=== PATIENT | female | born 1935 | race Two or more races ===

== ENCOUNTER 2018-06-12 07:33 | Day surgery (SDC) | payer BC ==
[~2018-06-12] VITALS: Ht 143.5 cm; Wt 57.1 kg
[2018-06-12] VITALS (8 sets, daily range): BP systolic 125–162; BP diastolic 69–74; PULSE 54–59; RESP 13–34; Ht 143.5 cm; Wt 57.1 kg
[~2018-06-12 07:33] MED LIST: ACETAMINOPHEN 325 MG TAB (POST-OP) PO PRN; CIPROFLOXACIN 0.3% 2.5 ML OPH (PRE-OP) OPER SCH; DICLOFENAC 0.1% 2.5 ML OPH (PRE-OP) OPER SCH; GENTAMICIN 0.3% 5 ML OPH (PRE-OP) OPER SCH; PHENYLephrine 2.5% 15 ML OPH (PRE-OP) OPER SCH; TETRACAINE 0.5% 4 ML OPH (PRE-OP) OPER SCH; TROPICAMIDE 1% 15 ML OPH (PRE OP) OPER SCH
[2018-06-12] MEDS ORDERED: CYCLOPENTOLATE 1% 2 ML OPH ONE (08:34)
[2018-06-12] MEDS ORDERED: MOXIFLOXACIN 0.5% 3 ML OPH ONE (08:54)
[2018-06-12] MEDS ORDERED: LIDOCAINE 4% (MPF) 5 ML INJ ONE (08:54)
[2018-06-12] MEDS ORDERED: CARBACHOL 0.01% 1.5 ML OPH INJ ONE (08:55)
[2018-06-12] MEDS ORDERED: TOBRAMYCIN 0.3% 3.5 GM OPH OINT ONE (08:55)
[2018-06-12] MEDS ORDERED: TETRACAINE 0.5% 4 ML OPH ONE (08:56)
[2018-06-12] MEDS ORDERED: CYCLOPENTOLATE 1% 2 ML OPH OPER SCH (09:00)
[2018-06-12] MEDS ORDERED: [UNRECOGNIZED DRUG - OTHER] PO (09:02)
[2018-06-12] MEDS ORDERED: THYROMIN (09:02)
[2018-06-12] MEDS ORDERED: EPINEPHrine 1 MG INJ ONE (09:06)
[2018-06-12] MEDS ORDERED: NA HYALURONATE/CHONDROITIN 0.5 ML SYG ONE (09:06)
--- NOTE | 2018-06-12 09:28 | HPN ---
Date/Time of Note Date/Time of Note DATE: 06/12/18 TIME: 09:28 Interval H&P Admission Note Pt. seen H&P reviewed: No system changes SANDER BREWER MD Jun 12, 2018 09:28
--- NOTE | 2018-06-12 09:33 | PREAC ---
Date/Time of Note Date/Time of Note DATE: 06/12/18 TIME: 09:32 Anesthesia Eval and Record Evaluation Time Pre-Procedure Interview DATE: 06/12/18 TIME: 09:32 Age 83 Sex female NPO: 8 hrs Preoperative diagnosis L eye cataract Planned procedure L eye cataract extraction w/ IOL Past Medical History Past Medical History: Includes Cardio: HTN, Dyslipidemia Endo: Hypothyroid Surgery & Anesthesia Issues No known issue Meds Anticoagulation: No Beta Franklin within 24 hr: No Reason Beta Franklin not given: Pt. not on B-Franklin Reported Medications [Thyromin] No Conflict Check, 125 MCG 06/12/18 [Telmax] No Conflict Check, PO DAILY 06/12/18 Current Medications Tetracaine HCl (Tetracaine 0.5% Steri-Unit Melina) 1 drop Q5 MIN X3 OPER Last administered on 06/12/18at 08:21; Admin Dose 1 DROP; Start 06/12/18 at 06:00 Tropicamide (Mydriacyl 1%) 1 drop Q5 MIN X3 OPER Last administered on 06/12/18at 08:21; Admin Dose 1 DROP; Start 06/12/18 at 06:00 Phenylephrine HCl (Ak-Dilate 2.5%) 1 drop Q5 MIN X3 OPER Last administered on 06/12/18 08:21; Admin Dose 1 DROP; Start 06/12/18 at 06:00 Diclofenac Sodium (Voltaren 0.1%) 1 drop Q5 MIN X3 OPER Last administered on 06/12/18at 08:21; Admin Dose 1 DROP; Start 06/12/18 at 06:00 Ciprofloxacin HCl (Ciloxan 0.3% Oph) 1 drop Q5 MIN X3 OPER Last administered on 06/12/18at 08:21; Admin Dose 1 DROP; Start 06/12/18 at 06:00 Gentamicin Sulfate (Gentamicin 0.3% Oph Drop) 1 drop Q5 MIN X3 OPER ; Start 06/12/18 at 06:00 Acetaminophen (Tylenol Tab) 650 mg Q6H PRN PO PAIN Last administered on 06/12/18 08:22; Admin Dose 650 MG; Start 06/12/18 at 06:00 Cyclopentolate HCl (Ak-Pentolate 1% Oph) 1 drop Q5MIN X 3 OPER Last administered on 06/12/18at 08:37; Admin Dose 1 DROP; Start 06/12/18 at 09:00 Meds reviewed: Yes Allergies Coded Allergies: No Known Allergy (Unverified , 06/12/18) Allergies Reviewed: Yes Labs/Studies Labs Reviewed: Reviewed by anesthesiologist test: N/A Studies: ECG (1st deg AVB, inf/anterior T wav abnormality) Pre-procedure Exam Last vitals Vital Signs Date Temp Pulse Resp B/P (MAP) Pulse Ox O2 O2 Flow FiO2 Time Delivery Rate 06/12/18 97.3 59 18 162/74 100 Room Air 08:51 (103) Airway: Adequate mouth opening, Adequate thyromental dist Mallampati: Mallampati II Teeth: Normal Lung: Normal Heart: Normal ASA Physical Status ASA physical status: 2 Emergency: None Planned Anesthetic General/MAC: MAC Pre-operative Attestations Prior to commencing anesthesia and surgery, the patient was re-evaluated, there was verification of: *The patient's identity *The results of appropriate recent lab work and preoperative vital signs *The above evaluation not changing prior to induction *Anesthetic plan, risk benefits, alternative and complications discussed with patient/family; questions answered; patient/family understands, accepts and wishes to proceed. RA PRESSLEY Jun 12, 2018 09:33
[2018-06-12] MEDS ORDERED: TOBRAMYCIN/DEXAMETH 3.5 GM OPH OINT ONE (09:36)
[2018-06-12] MEDS ORDERED: PHENYLephrine 10% 5 ML OPH ONE (09:56)
[2018-06-12] MEDS ORDERED: MIDAZOLAM 1 MG/ML 2 ML INJ ONE (09:58)
[2018-06-12] MEDS ORDERED: LABETALOL HCL 20MG INJ IV PRN (10:00)
[2018-06-12] MEDS ORDERED: ALBUTEROL 0.083% (NEB) 2.5 MG/3 ML AMP HHN PRN (10:00)
[2018-06-12] MEDS ORDERED: ACETAMINOPHEN 500 MG TAB PO PRN (10:00)
[2018-06-12] MEDS ORDERED: OXYCODONE/ACETAMINOPHEN (5/325) TAB PO PRN (10:00)
[2018-06-12] MEDS ORDERED: ACETAMINOPHEN 325 MG TAB PO PRN (10:00)
[2018-06-12] MEDS ORDERED: hydrALAzine 20 MG INJ IV PRN (10:00)
[2018-06-12] MEDS ORDERED: FENTAnyl 50 MCG/ML VIAL IV PRN (10:00)
[2018-06-12] MEDS ORDERED: ONDANSETRON 4 MG INJ IV PRN (10:00)
[2018-06-12] MEDS ORDERED: DIPHENHYDRAMINE 50 MG INJ IV PRN (10:00)
--- NOTE | 2018-06-12 10:56 | PAC ---
Date/Time of Note Date/Time of Note DATE: 06/12/18 TIME: 10:55 Post-Anesthesia Notes Post-Anesthesia Note Last documented vital signs b Vital Signs Date Temp Pulse Resp B/P Pulse Ox O2 O2 Flow FiO2 Time (MAP) Delivery Rate 06/12/18 97.3 99.9 59 60 18 18 162/74 100 100 Room 08:51 105 (103) 14 Air RA 2 Activity: WNL Respiratory function: WNL Cardiovascular function: WNL Mental status: Baseline Pain reasonably controlled: Yes Hydration appropriate: Yes Nausea/Vomiting absent: Yes RA PRESSLEY Jun 12, 2018 10:56
--- NOTE | 2018-06-12 11:28 | OPR ---
Date/Time of Note Date/Time of Note DATE: 06/12/18 TIME: 11:19 Operative Report Procedure Date: Jun 12, 2018 Preoperative Diagnosis Visually Significant Cataract Left Eye; Poorly Dilating Pupil Left Eye Postoperative Diagnosis Visually Significant Cataract Left Eye; Poorly Dilating Pupil Left Eye Operation/Procedure Performed Phacoemulsification with Inraocular Lens Implantation Left Eye; Insertion of Pupillary Dilation Device I-Ring to assist in Cataract Surgery Left Eye Surgeon see signature line Tree Inspector Miguel Anesthesia Type: MAC Anesthesiologist: RA PRESSLEY Tourniquet Time: None Estimated Blood Loss: none Transfusion none Specimen No Specimen Was Sent Grafts/Implants none Tubes/Drains none Complications none Pt Condition Post Procedure: stable Disposition: PACU Indications INDICATIONS FOR SURGERY: Patient has visually significant Cataract in the operative eye affecting the activities of daily living. this has affected patients ability to perform some of the daily tasks such as reading, watching Television, and in some cases driving. The patient has tried a change of glasses, which have failed to provide the satisfactory improvement in vision. Procedure Description OPERATIVE REPORT: The patient was identified and brought to the pre-op area. The operative eye was identified and informed consent was obtained after the patient fully understood the risks, benefits and alternatives of the planned surgery. Three sequential applications of Mydriacyl 1%, Phenylephrine 2.5%, Tetracaine 1% and Ocuflox eyedrops were applied to the operative eye at 5 minute intervals. Patient was brought to the operating room and placed in a supine position. The monitoring equipment was attached and IV sedation was initiated by the Anesthesiologist. The Operative eye was cleaned , prepared and draped in a sterile fashion. The eyelid speculum was placed and microscope was aligned for good visualization. Side port incision of 1.1 mm was made at the limbus using a MVR blade and globe fixator. Preservative free Lidocaine 1% in BSS was injected to enhance the local anesthesia. a dispersive Viscoelastic substance was injected in the anterior chamber. A clear corneal Limbal Temporal incision was performed using a 2.4 mm angled Keratome blade in a biplanar configuration and about 2.5 mm long. Pupil was noted to be poorly dilated for safe phacoemulsification surgery. 10% PhenyEphrine drops were intilled and the pupil still failed to dilate adequately. Visitec I-Ring was inserted my the described technique for the device. It was guided to engage the pupillary margin at four points. The ring was noted to dilate and achieve a pupillary size of about 6.5 mm noted to be adequate size for surgery. Anterior Capsulorrhexis was initiated with a Cystotome and completed with Utrata's scissors to achieve a 5 mm round, continuous and curvilinear opening. Hydrodissection and hydrodelineation was performed to loosen up the nucleus and epinucleus by injecting BSS solution with a Hydrodissection canula. The nucleus was mobilized to rotate freely with a kuglin's hook. The phaco handpiece of the [employer] phaco machine was brought in the field. The nucleus was disassembled by using a modified Stop and Chop technique. Epinucleus was aspirated. Cortical material was aspirated with an I/A handpiece and angled soft tip aspirator. A foldable Intraocular lens of the chosen model was inserted in the folded position into the capsular bag and was allowed to open fully. The lens was rot ated to achieve a good central position in the bag. The I-Ring was removed by pulling it back into the insertion handle. The viscoelastic substance was fully removed using an I/A system. The incisions were sealed by a hydrostatic closure by injecting BSS. The incision was tested for leakage and was found to be sealed. The eyelid speculum was removed. Tobradex eye ointment and Oculflox eyedrops were instilled in the eye. Eye patch and eye shield were taped in place over closed eye.The patient tolerated the procedure very well without any complications.The patient was transferred to the recovery room in a stable condition for further monitoring. The patient was dischrged to go home once the discharge criteria was met with written advice about post operative care and follow up appointment. SANDER BREWER MD Jun 12, 2018 11:28
== END 2018-06-12 12:12 | disposition home or self-care (01) ==
LOC: SDS 07:33
PROVIDERS: ATTEND Ophthalmology
DX: H26.8 Other specified cataract (principal); H57.04 Mydriasis; I10 Essential (primary) hypertension; E03.9 Hypothyroidism, unspecified
CPT/HCPCS: 66984; J0171; J2250; V2632